=== PATIENT | male | born 1930 | race Caucasian/White ===

== ENCOUNTER → 2021-03-30 | Outpatient (CLI) | payer MEDICARE | LOC: CARD 14:30 | PROVIDERS: ATTEND Internal Medicine Cardiovascular Disease | DX: I08.0 Rheumatic disorders of both mitral and aortic valves (principal); I11.9 Hypertensive heart disease without heart failure; I25.10 Atherosclerotic heart disease of native coronary artery without angina pectoris | CPT/HCPCS: 93306 ==

== ENCOUNTER 2021-04-03 09:00 | Day surgery (SDC) | payer MEDICARE ==
[~2021-04-03] VITALS: Ht 172.7 cm; Wt 93.0 kg
[2021-04-03] VITALS (8 sets, daily range): BP systolic 118–159; BP diastolic 59–88
[2021-04-03 07:24] LABS: HEMATOCRIT 44 % (40-54); HEMOGLOBIN 14.4 g/dL (13.3-17.7); MEAN CORPUSCULAR HEMOGLOBIN 32 pg (25-34); MEAN CORPUSCULAR HGB CONC 33 g/dL (32-36); MEAN CORPUSCULAR VOLUME 96 fL (80-99); MEAN PLATELET VOLUME 9.9 fL (9.0-12.2); PLATELET COUNT 187 10^3/uL (130-400); WHITE BLOOD COUNT 8.9 10^3/uL (4.3-11.0)
--- NOTE | 2021-04-03 07:32 | Diagnostic Imaging Report ---
INDICATION: Nonhealing wound, peripheral vascular disease. FINDINGS: The lungs are hyperexpanded but clear. Cardiomediastinal and hilar contours normal. No failure, effusion or pneumothorax. No free air beneath the diaphragms. IMPRESSION: Air trapping with clear hyperexpanded lungs, exam otherwise normal. Dictated by: Dictated on workstation # [id number]
[2021-04-03 07:39] LABS: INR 1.1 (0.8-1.4); PROTHROMBIN TIME PATIENT 14.9 SEC (12.2-14.7)
[2021-04-03 07:46] LABS: ALBUMIN 3.7 GM/DL (3.2-4.5); BILIRUBIN,TOTAL 0.7 MG/DL (0.1-1.0); CREATININE SERUM 1.34 MG/DL (0.60-1.30); POTASSIUM 3.8 MMOL/L (3.6-5.0); TOTAL PROTEIN 6.7 GM/DL (6.4-8.2)
--- NOTE | 2021-04-03 08:15 | Conscious Sedation/ASA ---
Conscious Sedation Pre-Proced Time 08:15 ASA Score 3 For ASA 3 and 4: Consider anesthesia and medical clearance. Also, for patients with a history of failed moderate sedation consider anesthesia. Airway Lungs Heart ASA score ASA 1: a normal healthy patient ASA 2: a patient with a mild systemic disease (mid diabetes, controlled hypertension, obesity x ASA 3: a patient with a severe systemic disease that limits activity (angina, COPD, prior Myocardial infarction) ASA 4: a patient with an incapacitating disease that is a constant threat to life (CHF, renal failure) ASA 5: a moribund patient not expected to survive 24 hrs. (ruptured aneurysm) ASA 6: a declared brain- patient whose organs are being harvested. For emergent operations, add the letter E after the classification Mallampati Classification Grade 3 Sedation Plan Analgesia, Amnesia, Plan communicated to team members, Discussed options with patient/fam, Discussed risks with patient/fam The patient is an appropriate candidate to undergo the planned procedure, sedation, and anesthesia. The patient immediately re-assessed prior to indication. MARCUS ALLEN MD Apr 03, 2021 08:15
[~2021-04-03 09:00] MED LIST: ACET-2422 PO; AMLO-250 PO; ASPI-1238 PO; ATOR40TA70 PO; DIVA-76 PO; DONE10TA41 PO; FURO40TA4 PO; GABA300C PO; GALA24CA PO; HEParin (CATH LAB) 2,000 ML IV ONE; HEParin 1000 UNIT/ML (10ML VIAL) FOR BOLUS ONE; LIDOCAINE 1% INJ 20 ML 20 ML VIAL ONE; MIDAZOLAM 5 MG/5 ML (VERSED) VIAL ONE; MULT-1136 PO; NITRO DRIP 25000 MCG/D5W 250 ML IV ONE; NS IV 1000 ML 1,000 ML IV SCH; NS IV 1000 ML 1,000 ML ONE; PANT40TA52 PO; SERT-413 PO; VITA1CAP42 PO; fentaNYL INJ 100 MCG/2 ML AMP ONE
[2021-04-03] MEDS ORDERED: ASPIRIN 325 MG (5 GR) TABLET ONE (09:23)
[2021-04-03] MEDS ORDERED: CLOPIDOGREL 300 MG (PLAVIX) TABLET PO ONE (09:23)
[2021-04-03] MEDS ORDERED: CLOP75TA69 PO (09:27)
--- NOTE | 2021-04-03 09:27 | Discharge Inst-Post CATH ---
Discharge Inst-CATH/EP Problems Reviewed?: Yes Post Cardiac Cath/EP D/C Inst Follow Up/Plan Appointment with Dr. Hare's office in 2 to 4 weeks <b>CARDIAC CATH/EP PROCEDURE DISCHARGE INSTRUCTIONS</b> ACTIVITY * Go Home directly and rest. * Limit activity of the leg (or wrist if it was used) for 7 days including aer obics, swimming, jogging, bicycling, etc. * Restrict stair-climbing for 7 days if possible, if not, climb up with your non-cath leg, then bring together on the same step. * Avoid lifting, pushing, pulling or excessive movement of the affected extremi ty for 7 days. * Customary sexual activity may be resumed after 2 days-use caution not to use a position that strains or causes pain to the affected extremity. * No driving for 24 hours. * NO SMOKING. * Avoid straining for bowel movements for 7 days. * Gentle walking on level ground is allowed. * Returning to work will depend on the type of procedure and the results. Your doctor will discuss this with you. CALL YOUR DOCTOR FOR ANY OF THE FOLLOWING: *If bleeding from the puncture site occurs- Apply gentle pressure to site with clean cloth and call your doctor or EMS. * If a knot or lump forms under the skin, increases in size, or causes pain. * If bruising appears to be worsening or moving further down your leg instead of disappearing. * Temperature above 101 F. CARE OF YOUR GROIN INCISION; * Bruising or purple discoloration of the skin near the puncture site is common. * You may shower only, no bathtub bathing for 5 days. Be careful to avoid slipping as your leg may feel stiff. * If a closure device was used on your femoral artery, please see the attached guide regarding care of the device and your leg. * Leave dressing on FOR 24 hours. CARE OF YOUR WRIST INCISION; * Bruising or purple discoloration of the skin near the puncture site is common. * You may shower. * DO NOT submerge wrist. * Leave dressing on FOR 24 hours. MARCUS HARE MD Apr 03, 2021 09:27
[2021-04-03] MEDS ORDERED: PATIENT MAY USE OWN MEDS, ALL PO SCH (09:30)
[2021-04-03] MEDS ORDERED: NS IV 1000 ML 1,000 ML IV SCH (09:30)
--- NOTE | 2021-04-03 09:36 | Peripheral Report ---
Peripheral Report Physician (s)/Rn Endoscopy (s) Physician MARCUS ALLEN MD Pre-Procedure Diagnosis Pre-Procedure Diagnosis: Peripheral arterial disease Post-Procedure Note Procedure Start Date: Apr 03, 2021 Name of Procedure: Bilateral lower extremity runoff Third order Additional imaging x2 WORKS MANAGER to the left tibioperoneal trunk WORKS MANAGER to the left popliteal artery Findings/Procedure Note PROCEDURE NOTE: 89 years old gentleman with nonhealing wound on his left foot. Had abnormal TBI. Scheduled for peripheral angiogram and bilateral runoff After explaining the procedure to the patient, all pros and cons were explained, all questions were answered. The patient signed the consent and then he was placed on the cardiac catheterization laboratory. The patient was placed on the cardiac catheterization laboratory. Groin was prepped SL fashion local anesthesia was used. Sheath placed in the right femoral artery, runoff to the right leg was done then using a rim catheter I did runoff to the left leg subsequently I noticed severe stenosis at the popliteal level, long Storq wire was advanced and the straight catheter was placed in the mid SFA then I did runoff to the left leg then DSA imaging to the trifurcation and DSA imaging at the left foot level. Patient has severe stenosis at the popliteal artery just behind the knee joint and subtotal occlusion of the tibioperoneal trunk. Patient received 5000 units of heparin, sheath was exchanged using Storq wire and I placed 55 cm 6 [place] sheath down to the mid SFA, I advanced a straight catheter and attempted to cross the lesion with command 18 LT without success subsequently I used Hardwick 4 x 100 balloon to support the wire and crossing the subtotal occlusion in the tibioperoneal trunk and I was successful in advancing it in the peroneal artery and parked the wire distally I did balloon dilatation to the tibioperoneal trunk then pulled the balloon back to the popliteal artery and did balloon angioplasty again angiogram showed significant improvement. I advanced a second balloon to the popliteal artery using Hardwick 5 x 100 I did a single inflation for 2 minutes, angiogram showed excellent results Sheath was exchanged again and used short 6 [place] sheath then closure device deployed FINDINGS: Right lower extremity: Runoff was done through the sheath showing mild disease in the common femoral artery and SFA and popliteal artery severe stenosis involving the anterior tibial artery and posterior tibial artery, collaterals filling the distal portion from the peroneal artery. Left lower extremity: Calcified SFA with mild disease in the SFA nonobstructive disease, common iliac and common femoral arteries with mild tortuosity Left popliteal artery has severe stenosis successful balloon angioplasty with Hardwick 5 x 100 with excellent results Left tibioperoneal trunk has severe stenosis/subtotal occlusion with successful balloon angioplasty using Hardwick 5 x 100 balloon with excellent results Posterior tibial artery and peroneal artery has good flow down to the foot, the anterior tibial artery has severe stenosis distally. Conservative management CONCLUSIONS: 1. Severe stenosis at the left popliteal artery and tibioperoneal trunk with successful balloon angioplasty with excellent results improve the flow down to the foot through the posterior tibial artery and peroneal artery 2. On the right side there is severe stenosis/subtotal occlusion of the anterior tibial artery and posterior tibial artery. Patient does not have any ischemic ulcers. Conservative management is recommended DISCUSSION AND RECOMMENDATIONS: Patient was started on aspirin and Plavix, continue maximizing medical therapy. Anesthesia Type: Conscious Sedation Estimated blood loss (mL): 25 ml Contrast Amount: 53 ml Total Radiation Dose: 260 mGy Post-Procedure Diagnosis Post-operative diagnosis: Ischemic foot ulcer Peripheral arterial disease Hypertension Hyperlipidemia MARCUS ALLEN MD Apr 03, 2021 09:36
== END 2021-04-03 17:05 | disposition home or self-care (01) ==
LOC: CATH 09:00 → CSD 09:54 → CATH 17:05
PROVIDERS: ATTEND Internal Medicine Cardiovascular Disease
DX: I70.293 Other atherosclerosis of native arteries of extremities, bilateral legs (principal); L97.529 Non-pressure chronic ulcer of other part of left foot with unspecified severity; I10 Essential (primary) hypertension; E78.5 Hyperlipidemia, unspecified; I65.23 Occlusion and stenosis of bilateral carotid arteries; Z79.899 Other long term (current) drug therapy; Z79.82 Long term (current) use of aspirin; Z87.891 Personal history of nicotine dependence; Z86.73 Personal history of transient ischemic attack (TIA), and cerebral infarction without residual deficits
CPT/HCPCS: 37224; 37228; 71045; 75716; 80053; 80061; 85027; 85610; 85730; 87081; C1725 ×2; C1760; C1769 ×2; C1887 ×3; C1894; 36415